=== PATIENT | male | born 1945 | race Caucasian/White ===

== ENCOUNTER → 2018-04-15 | Outpatient (CLI) | payer BC ==
[2018-04-15 11:08] LABS: CALCIUM 9.7 mg/dL (8.4-10.2); CREATININE, serum 1.37 mg/dL (0.66-1.25); POTASSIUM 4.4 mmol/L (3.4-5.0)
== END ==
LOC: COL.RAD 03-31 14:00
PROVIDERS: Urology
DX: C61 Malignant neoplasm of prostate (principal); G44.209 Tension-type headache, unspecified, not intractable; K76.0 Fatty (change of) liver, not elsewhere classified; N28.82 Megaloureter; N26.1 Atrophy of kidney (terminal); N28.1 Cyst of kidney, acquired; R91.1 Solitary pulmonary nodule; R25.1 Tremor, unspecified
CPT/HCPCS: Q9967

== ENCOUNTER → 2018-04-22 | Outpatient (CLI) | payer BC | LOC: COL.RAD 08:57 | DX: C61 Malignant neoplasm of prostate (principal) | CPT/HCPCS: A9503 ==